=== PATIENT | male | born 1945 | race Caucasian/White ===

== ENCOUNTER 2019-05-04 06:09 | Day surgery (SDC) | payer OTHER ==
[~2019-05-04] VITALS: Ht 180.3 cm; Wt 99.8 kg
[~2019-05-04 06:09] MED LIST: ATORVASTATIN CA10 MG PO; DOXAZOSIN MESYLA8 MG PO; LISINOPRIL20 MG PO; LOPRESSOR50 MG PO; NORVASC5 MG PO; SERTRALINE HCL25 MG PO
[2019-05-04 08:00] VITALS: BP 137/68
--- NOTE | 2019-05-15 06:19 | O ---
[facility] [place] [address] OPERATIVE REPORT Name: KATH ROGERS Room #: DEP [employer] [employer]#: [id number] Admission: 05/04/19 Attend Phys: Osmin Fitzpatrick MD Discharge: 05/04/19 Date of : 43 Report #: [id number] THIS REPORT FOR: cc: Kina Noel MD,Osmin Boss MD, MD ~ THIS REPORT FOR: //name// CC: Pk Fitzpatrick DATE OF SERVICE: 05/04/2019 SURGEON: Osmin Fitzpatrick MD BUSINESS ADMINISTRATION INSTRUCTOR: None. PREOPERATIVE DIAGNOSIS: Bilateral lower lid ectropion. POSTOPERATIVE DIAGNOSIS: Bilateral lower lid ectropion. OPERATION PERFORMED: Bilateral lower lid ectropion repair. ANESTHESIA: Local with IV sedation. COMPLICATIONS: None. INDICATIONS FOR PROCEDURE: This patient has bilateral acquired lower lid ectropion with chronic tearing, keratopathy and discharge. The current procedures are undertaken in order to improve the patient's visual function, lacrimal outflow, and level of comfort. Informed consent was obtained to include but not limit to the risk of loss of vision, bleeding, infection, scarring, failure to improve the problem and need for further surgery. DESCRIPTION OF OPERATION: The patient was taken to the operating room where 2% Xylocaine with epinephrine mixed with equal parts of 0.75% Marcaine with Wydase was administered transcutaneously and transconjunctivally to each lower lid and lateral canthal area. The patient was then prepped and draped in the usual sterile fashion. A Chandra clamp was then used to clamp the left lateral canthus following which a sharp canthotomy and cantholysis were performed. The tarsal strip was prepared laterally, removing the lash bearing portion of the redundant lid margin and the redundant tarsal plate. Hemostasis was achieved with a monopolar cautery, as it was throughout the case. The tarsal strip was then secured to the internal portion of the lateral orbital tubercle with two [facility] [address] [place] [address] OPERATIVE REPORT Name: KATH ROGERS Room #: DEP [facility].#: [id number] Admission: 05/04/19 Attend Phys: Osmin Fitzpatrick MD Discharge: 05/04/19 Date of : 43 Report #: [id number] interrupted 5-0 Prolene sutures. The lateral canthal angle was sharply reformed as the subcutaneous structures and the skin were closed with multiple interrupted 6-0 plain gut sutures. Attention was then turned to the right side where the same procedure was performed. The wounds were cleaned and dressed with ophthalmic antibiotic ointment. The patient was then transported to the recovery area, having tolerated the procedure well with no anesthetic or operative complications being noted. <ELECTRONICALLY SIGNED> By: Osmin Fitzpatrick MD 05/15/19 0619 [id number] Osmin Fitzpatrick MD /delgado
== END 2019-05-04 08:25 | disposition home or self-care (01) ==
LOC: OR 06:09 → TBA 06:10 → OR 06:23
DX: H02.102 Unspecified ectropion of right lower eyelid (principal); H02.105 Unspecified ectropion of left lower eyelid; I10 Essential (primary) hypertension; E78.5 Hyperlipidemia, unspecified; F32.9 Major depressive disorder, single episode, unspecified; G47.30 Sleep apnea, unspecified; Z98.890 Other specified postprocedural states; Z87.442 Personal history of urinary calculi; Z85.828 Personal history of other malignant neoplasm of skin; Z87.891 Personal history of nicotine dependence; Z96.651 Presence of right artificial knee joint; Z98.41 Cataract extraction status, right eye; Z98.42 Cataract extraction status, left eye; Z79.899 Other long term (current) drug therapy
CPT/HCPCS: 50010; 50101; 50386; 50398; 51636; 56527; 56531; 62110; 62850; 70005

== ENCOUNTER 2019-06-01 05:56 | Day surgery (SDC) | payer OTHER ==
[~2019-06-01] VITALS: Ht 180.3 cm; Wt 102.1 kg
[2019-06-01 07:00] VITALS: BP 138/63
--- NOTE | 2019-06-05 06:15 | O ---
[facility] [place] [address] OPERATIVE REPORT Name: KATH ROGERS Room #: DEP [facility].#: [id number] Admission: 06/01/19 Attend Phys: Osmin Fitzpatrick MD Discharge: 06/01/19 Date of : 43 Report #: [id number] THIS REPORT FOR: cc: Kina Noel MD, Rachel L. MD White, William L. MD ~ CC: Pk Fitzpatrick DATE OF SERVICE: 06/01/[address]: None. PREOPERATIVE DIAGNOSIS: Bilateral upper lid ptosis with superior visual field defects both eyes. POSTOPERATIVE DIAGNOSIS: Bilateral upper lid ptosis with superior visual field defects both eyes. OPERATION PERFORMED: Bilateral upper lid functional ptosis repair. CLERK OF SUPERIOR COURT: None. ANESTHESIA: Local with IV sedation. COMPLICATIONS: None. INDICATIONS FOR PROCEDURE: This patient has bilateral upper lid ptosis with superior visual field loss both eyes. Visual field testing demonstrates dense superior visual defects. Retesting with the upper lid elevated shows an improvement in visual field loss of over 30% and in excess of 12 degrees. The current procedure is being undertaken in order to improve the patient's visual function. Informed consent was obtained to include but not limited to the risk of loss of vision, bleeding, infection, scarring, failure to improve the problem and need for further surgery, such as adjustment of lid height. DESCRIPTION OF PROCEDURE: The patient was taken to the operating room, where 2% Xylocaine with epinephrine mixed with equal parts of 0.75% Marcaine with Wydase was administered transcutaneously to each upper lid. The patient was then prepped and draped in the usual sterile fashion. An upper lid crease incision was then made bilaterally and the dissection was [address] [address] OPERATIVE REPORT Name: KENKATH H Room #: DEP [facility].#: [id number] Admission: 06/01/19 Attend Phys: Osmin Fitzpatrick MD Discharge: 06/01/19 Date of : 43 Report #: [id number] carried down until the orbital septum was identified. The orbital septum was then cleared and the preaponeurotic fat identified. The levator aponeurosis was then disinserted from the anterior surface of the tarsal plate and dissected free in the avascular Mckeon's muscle plane. The aponeurosis was then advanced and reattached to the anterior surface of the tarsal plate with interrupted mattress 6-0 Novafil sutures on each side, adjusting for height and contour. The redundant aponeurosis was then amputated. The incision was then closed with multiple interrupted 6-0 chromic sutures that were used to recreate an upper lid crease. The skin was closed with a running 6-0 plain gut suture. The wound was then cleaned and dressed with ophthalmic antibiotic ointment followed by a Telfa pad. The patient was transported to the recovery area, having tolerated the procedure well with no anesthesia or operative complications being noted. <ELECTRONICALLY SIGNED> By: Osmin Fitzpatrick MD 06/05/19 0615 [id number] Osmin Fitzpatrick MD /nt
== END 2019-06-01 08:30 | disposition home or self-care (01) ==
LOC: OR → TBA 05:57 → OR 06:32
DX: H02.413 Mechanical ptosis of bilateral eyelids (principal); H53.462 Homonymous bilateral field defects, left side; H53.461 Homonymous bilateral field defects, right side; I10 Essential (primary) hypertension; E78.5 Hyperlipidemia, unspecified; F32.9 Major depressive disorder, single episode, unspecified; F41.9 Anxiety disorder, unspecified; G47.30 Sleep apnea, unspecified; Z98.890 Other specified postprocedural states; Z79.899 Other long term (current) drug therapy; Z87.442 Personal history of urinary calculi; Z85.828 Personal history of other malignant neoplasm of skin; Z87.01 Personal history of pneumonia (recurrent); Z96.641 Presence of right artificial hip joint; Z98.41 Cataract extraction status, right eye; Z87.891 Personal history of nicotine dependence; Z98.42 Cataract extraction status, left eye
CPT/HCPCS: 50010; 50101; 50386; 50398; 51636; 56527; 56528; 56531; 62110; 62850; 70005

== ENCOUNTER → 2020-01-15 | Outpatient (CLI) | payer OTHER ==
[~2020-01-15] MED LIST changes: +ALLER-TEC D 5-1 EACH PO; +MULTI VITAMIN1 EACH PO; +VITAMIN D325 MC1 PO
== END ==
LOC: LAB 10:16
PROVIDERS: ATTEND Ophthalmology
DX: Z01.812 Encounter for preprocedural laboratory examination (principal); Z20.828 Contact with and (suspected) exposure to other viral communicable diseases

== ENCOUNTER 2020-01-18 06:51 | Day surgery (SDC) | payer OTHER ==
[~2020-01-18] VITALS: Ht 180.3 cm; Wt 108.0 kg
[2020-01-18 10:38] VITALS: BP 151/71
--- NOTE | 2020-01-22 06:21 | O ---
[facility] [place] [address] OPERATIVE REPORT Name: KATH ROGERS Room #: DEP [facility].#: [id number] Admission: 01/18/20 Attend Phys: Osmin Fitzpatrick MD Discharge: 01/18/20 Date of : 43 Report #: [id number] THIS REPORT FOR: cc: Kina Noel MD, Rachel L. MD White, William L. MD ~ CC: Pk Fitzpatrick DATE OF SERVICE: 01/18/2020 SURGEON: Osmin Fitzpatrick MD PREOPERATIVE DIAGNOSIS: Bilateral nasal lacrimal duct obstruction. POSTOPERATIVE DIAGNOSIS: Bilateral nasal lacrimal duct obstruction. OPERATION PERFORMED: Bilateral endoscopic dacryoplasty with silicone intubation. ANESTHESIA: General. COMPLICATIONS: None. INDICATIONS FOR SURGERY: This patient has acquired bilateral nasal lacrimal duct stenosis with chronic tearing and discharge, both eyes. The current procedures are undertaken in order to improve the patient's level of lacrimal outflow and visual clarity. Informed consent was obtained to include but not limited to the potential risks for damage to the eye, loss of vision, bleeding, infection, failure to improve the problem and need for further surgery. DESCRIPTION OF OPERATION: The patient was taken to the operating room, where general anesthesia was administered. The medial canthi were anesthetized with 2% Xylocaine with epinephrine mixed with equal parts of 0.75% Marcaine with Wydase. The lateral wilson of the nose were then bilaterally injected with the same anesthetic mixture. The nose was packed with Afrin-soaked cottonoids. The patient was then prepped and draped in the usual sterile fashion. A moist compress was placed on the left eye while attention was turned to the right side. The superior and inferior puncta were then atraumatically dilated with a punctum dilator. A size 0 lacrimal probe was then passed through the superior [facility] [address] [address] OPERATIVE REPORT Name: KENKATH [id number] Admission: 01/18/20 Attend Phys: Osmin Fitzpatrick MD Discharge: 01/18/20 Date of : 43 Report #: [id number] canalicular system and through the stenosed nasal lacrimal duct. The nasal packing was removed and the endoscope was brought into the field. The inferior turbinate was gently infractured with a [place] periosteal elevator to allow visualization of the inferior meatus in the area of the opening of the valve of Hasner in the nose. The probe was found and confirmed to be in the proper location. It was removed and subsequently replaced with a size 1 and a size 2 Laboy probe, which also had their passage confirmed endoscopically to be in the proper location. A 3 by 15 Lacri Catheter was lubricated with a small quantity of ophthalmic antibiotic ointment. The Lacri Catheter was then passed through the superior canalicular system and the stenosed nasal lacrimal duct. The Lacri Catheter was confirmed to be in the proper location endoscopically intranasally in the inferior meatus. The was inflated to 9 atmospheres for 90 seconds and deflated. The catheter was then inflated to 9 atmospheres for 60 seconds. The catheter was then withdrawn to the proximal black ring. It was then inflated to 9 atmospheres for 90 seconds. The balloon was then deflated and reinflated to 9 atmospheres for 60 seconds. The balloon was the aspirated and withdrawn to the distal black ring. It was then inflated to 9 atmospheres for 90 seconds. The balloon was deflated and reinflated to 9 atmospheres for 60 seconds. The balloon was then deflated and vigorously aspirated as it was withdrawn through the superior canalicular system. A Dawn tube was then passed through the superior canalicular system and out the dilated duct. The Dawn tube was secured under the inferior turbinate in the inferior meatus with a Dwan hook and retrieved endoscopically. The Dawn tube was then passed through the inferior canalicular system in a similar fashion and was retrieved endoscopically in the nose atraumatically. The Dawn tube was then secured to itself with 3 square throws and then to the lateral wall of the nose with a 5-0 Prolene suture. Attention was then turned to the other side, where the same procedure was performed. Antibiotic steroid drops were then placed in both eyes. A small quantity of ophthalmic antibiotic ointment was placed on the Dawn tube. The patient was then transported to the recovery area with no anesthetic or operative complications being noted. <ELECTRONICALLY SIGNED> By: Osmin Fitzpatrick MD 01/22/20 0621 [id number] [id number] Osmin Fitzpatrick MD /nt
== END 2020-01-18 11:30 | disposition home or self-care (01) ==
LOC: OR 06:51 → TBA 06:51 → OR 09:38
PROVIDERS: ATTEND Ophthalmology
DX: H04.553 Acquired stenosis of bilateral nasolacrimal duct (principal); I10 Essential (primary) hypertension; E78.5 Hyperlipidemia, unspecified; F32.9 Major depressive disorder, single episode, unspecified; F41.9 Anxiety disorder, unspecified; G47.30 Sleep apnea, unspecified; Z98.890 Other specified postprocedural states; Z79.899 Other long term (current) drug therapy; Z87.891 Personal history of nicotine dependence; Z96.641 Presence of right artificial hip joint; Z98.41 Cataract extraction status, right eye; Z98.42 Cataract extraction status, left eye; Z85.828 Personal history of other malignant neoplasm of skin; Z87.442 Personal history of urinary calculi
CPT/HCPCS: 50010; 50101; 50261; 50386; 50398; 51777; 56528; 62110; 62900; 70005